=== PATIENT | female | born 1955 | race Caucasian/White ===

== ENCOUNTER → 2024-07-05 08:45 | Outpatient (REF) | payer MEDICARE, BC, SELFPAY | LOC: HWRAD 08:45 | PROVIDERS: ATTENDING PHYSICIAN Student in an Organized Health Care Education/Training Program | DX: M06.9 Rheumatoid arthritis, unspecified (principal) | CPT/HCPCS: 73110; 73130 ==

== ENCOUNTER → 2025-05-15 08:00 | Outpatient (REF) | payer MEDICARE, BC, SELFPAY | LOC: PAVMRI 08:00 | PROVIDERS: ATTENDING PHYSICIAN Physician Assistant Surgical | DX: M25.511 Pain in right shoulder (principal); M25.521 Pain in right elbow | CPT/HCPCS: 73221 ==

== ENCOUNTER → 2025-05-31 07:39 | Outpatient (REF) | payer MEDICARE, BC, SELFPAY | LOC: EMG 07:39 | PROVIDERS: ATTENDING PHYSICIAN Orthopaedic Surgery Hand Surgery | DX: G56.01 Carpal tunnel syndrome, right upper limb (principal); R20.0 Anesthesia of skin; G56.03 Carpal tunnel syndrome, bilateral upper limbs | CPT/HCPCS: 95886; 95911 ==

== ENCOUNTER → 2025-06-08 07:54 | Outpatient (REF) | payer MEDICARE, BC, SELFPAY ==
[2025-06-08 09:08] LABS: Hematocrit 35.6 % (37.0-47.0); Hemoglobin 11.6 g/dL (12.0-16.0); Mean Corp Hgb Conc. 32.6 g/dL (33.0-37.0); Mean Corpuscular Volume 87.5 fL (81.0-99.0); Nucleated Red Blood Cells % 0 %; Platelet Count 226 10^3/uL (130-400); Red Cell Dist. Width 11.8 % (11.5-14.5)
[2025-06-08 09:42] LABS: Blood Urea Nitrogen 16 mg/dl (7-17); Calcium 9.4 mg/dl (8.4-10.2); Carbon Dioxide 29 mmol/L (22-30); Chloride 105 mmol/L (98-107); Glucose 79 mg/dl (70-99); Potassium 4.8 mmol/L (3.5-5.1); Sodium 139 mmol/L (135-145); eGFR > 60.00
== END ==
LOC: RCS 07:54
PROVIDERS: ATTENDING PHYSICIAN Orthopaedic Surgery Hand Surgery
DX: Z01.818 Encounter for other preprocedural examination (principal)
CPT/HCPCS: 36415; 80048; 85025; 93005

== ENCOUNTER → 2025-08-02 09:05 | Outpatient (REF) | payer MEDICARE, BC, SELFPAY | LOC: RAD 09:05 | PROVIDERS: ATTENDING PHYSICIAN Student in an Organized Health Care Education/Training Program | DX: M19.90 Unspecified osteoarthritis, unspecified site (principal) | CPT/HCPCS: 73110; 73130 ==